=== PATIENT | female | born 1990 | race African-American/Black ===

== ENCOUNTER 2017-07-13 20:05 | Emergency (ER) | payer SELFPAY ==
[2017-07-13] MEDS ORDERED: diphenhydrAMINE 50 MG/ML VIAL ONE (21:15)
[2017-07-13] MEDS ORDERED: Metoclopramide HCl 10 MG/2 ML VIAL ONE (21:15)
[2017-07-13] MEDS ORDERED: Ketorolac Tromethamine 30 MG/ML VIAL ONE (21:15)
[2017-07-13] MEDS ORDERED: methylPREDNISolone Sod Succ/PF 125 MG/2 ML VIAL ONE (21:20)
[2017-07-13] MEDS ORDERED: Magnesium Sulfate 2 GM/100 ML BAG ONE (22:02)
[2017-07-13] MEDS ORDERED: Lorazepam 2 MG/ML VIAL ONE (22:02)
[2017-07-13 22:04] LABS: Bilirubin Negative (Negative); Blood, Urine Negative (Negative); Clarity CLEAR (Clear); Glucose, Urine (Dipstick) Negative (Negative); Leukocyte Negative (Negative); Nitrite Negative (Negative); Protein, Urine (Dipstick) Negative (Neg-Trace); Specific Gravity, Urine 1.012 (1.002-1.036); Urobilinogen 0.2 mg/dL (0.2-1.0)
[2017-07-13 22:30] LABS: #Eosinphils 0.3 thou/uL (0.0-0.7); #Lymphocytes 0.8 thou/uL (1.20-3.40); #Monocytes 0.3 thou/uL (0.11-0.59); #Neutrophils 2.6 thou/uL (1.40-6.50); %Basophils 0.6 % (0.0-1.0); %Eosinophils 7.4 % (0.0-10.0); %Lymphocytes 20.9 % (21.0-51.0); %Monocytes 6.2 % (0.0-10.0); %Neutrophils 64.9 % (42.0-75.0); Hemoglobin 13.1 g/dL (12.0-16.0); Mean Corpuscular HGB CONC 34.2 g/dL (32.0-36.0); Mean Corpuscular Hemoglobin 30.5 pg (27.0-31.0); Mean Corpuscular Volume 89.4 fl (81.0-99.0); Mean Platelet Volume 7.4 fL (7.4-10.4); Platelet Count 166 thou/uL (130-400); RBC Distribution Width 12.7 % (11.5-14.5); Red Blood Cell (RBC) Count 4.29 mill/uL (4.20-5.40)
[2017-07-13 22:45] LABS: ALT (SGPT) 41 U/L (8-55); AST (SGOT) 38 U/L (5-34); Albumin 3.3 g/dL (3.5-5.0); Alkaline Phosphatase 67 U/L (40-150); Anion Gap 8 mmol/L (10-20); BUN (Urea Nitrogen) 14 mg/dL (7.0-18.7); Bilirubin, Total 0.3 mg/dL (0.2-1.2); Calc. Creatinine Clearance 0 mL/min (70-130); Calcium 8.4 mg/dL (7.8-10.44); Carbon Dioxide 22 mmol/L (22-29); Chloride 113 mmol/L (98-107); Estimated GFR-MDRD Greater than 90; Globulin 3.1 g/dL (2.4-3.5); Glucose 107 mg/dL (70-105); Magnesium 3.7 mg/dL (1.6-2.6); Potassium 3.5 mmol/L (3.5-5.1); Protein, Total 6.4 g/dL (6.0-8.3); Sodium 139 mmol/L (136-145)
== END 2017-07-13 23:30 | disposition home or self-care (01) ==
LOC: ERS 20:05
DX: G43.909 Migraine, unspecified, not intractable, without status migrainosus (principal); K21.9 Gastro-esophageal reflux disease without esophagitis; F41.9 Anxiety disorder, unspecified; F90.9 Attention-deficit hyperactivity disorder, unspecified type; F32.9 Major depressive disorder, single episode, unspecified; F17.210 Nicotine dependence, cigarettes, uncomplicated
CPT/HCPCS: 36415; 80053; 81003; 83735; 85025; 96365; 96367; 96375; J1200; J1885; J2060; J2765; J2930; J3475

== ENCOUNTER 2017-07-16 12:02 | Emergency (ER) | payer SELFPAY ==
[2017-07-16 13:33] LABS: #Eosinphils 0.1 thou/uL (0.0-0.7); #Lymphocytes 0.8 thou/uL (1.20-3.40); #Monocytes 0.5 thou/uL (0.11-0.59); #Neutrophils 5.8 thou/uL (1.40-6.50); %Basophils 0.1 % (0.0-1.0); %Eosinophils 1.6 % (0.0-10.0); %Lymphocytes 11.6 % (21.0-51.0); %Monocytes 6.3 % (0.0-10.0); %Neutrophils 80.3 % (42.0-75.0); Mean Corpuscular HGB CONC 32.4 g/dL (32.0-36.0); Mean Corpuscular Hemoglobin 28.8 pg (27.0-31.0); Mean Corpuscular Volume 88.8 fl (81.0-99.0); Mean Platelet Volume 7.9 fL (7.4-10.4); Platelet Count 209 thou/uL (130-400); Red Blood Cell (RBC) Count 5.21 mill/uL (4.20-5.40); White Blood Cell (WBC) Count 7.3 thou/uL (4.8-10.8)
[2017-07-16 13:55] LABS: BHCG - Serum Negative (NEGATIVE); Pregs Control Background? CLEAR/WHITE (CLR/WHITE); Pregs Control Bar Appear? YES (CONTROL BAR)
[2017-07-16 14:04] LABS: ALT (SGPT) 42 U/L (8-55); AST (SGOT) 22 U/L (5-34); Albumin 4.2 g/dL (3.5-5.0); Alkaline Phosphatase 79 U/L (40-150); Anion Gap 16 mmol/L (10-20); BUN (Urea Nitrogen) 19 mg/dL (7.0-18.7); Bilirubin, Total 0.3 mg/dL (0.2-1.2); Calc. Creatinine Clearance 0 mL/min (70-130); Calcium 9.5 mg/dL (7.8-10.44); Carbon Dioxide 19 mmol/L (22-29); Chloride 110 mmol/L (98-107); Estimated GFR-MDRD Greater than 90; Globulin 3.8 g/dL (2.4-3.5); Glucose 75 mg/dL (70-105); Sodium 141 mmol/L (136-145)
--- NOTE | 2017-07-16 14:32 | CT ---
CT BRAIN WITHOUT CONTRAST: Date: 07/16/17 HISTORY: Migraines. COMPARISON: None. FINDINGS: No acute territorial infarct or hemorrhage. No midline shift or mass effect. Ventricular size and ext ra-axial CSF spaces are normal. The calvarium is intact. Mastoids are clear. IMPRESSION: No acute intracranial abnormality. POS: [facility]
[2017-07-16] MEDS ORDERED: Ketorolac Tromethamine 30 MG/ML VIAL ONE (14:36)
[2017-07-16] MEDS ORDERED: Metoclopramide HCl 10 MG/2 ML VIAL ONE (14:36)
[2017-07-16] MEDS ORDERED: diphenhydrAMINE 50 MG/ML VIAL ONE (14:36)
== END 2017-07-16 15:10 | disposition home or self-care (01) ==
LOC: ERS 12:02
DX: G43.909 Migraine, unspecified, not intractable, without status migrainosus (principal); I10 Essential (primary) hypertension; E86.0 Dehydration; F41.9 Anxiety disorder, unspecified; F32.9 Major depressive disorder, single episode, unspecified; F17.210 Nicotine dependence, cigarettes, uncomplicated
CPT/HCPCS: 70450; 80053; 84703; 85025; 96360; 96361; 99406; J1200; J1885; J2765

== ENCOUNTER 2018-02-21 10:20 | Emergency (ER) | payer SELFPAY ==
[2018-02-21] MEDS ORDERED: Acetaminophen 500 MG TAB ONE (11:27)
[2018-02-21] MEDS ORDERED: Promethazine 25 MG TAB ONE (11:27)
[2018-02-21 12:02] LABS: Bilirubin Negative (Negative); Blood, Urine Small (Negative); Clarity Clear (Clear); Glucose, Urine (Dipstick) Negative (Negative); Leukocyte Trace (Negative); Nitrite Negative (Negative); Protein, Urine (Dipstick) Negative (Neg-Trace); Urobilinogen 0.2 mg/dL (0.2-1.0)
[2018-02-21 12:04] LABS: Bacteria/HPF None Seen HPF (None Seen); Hyaline Casts/LPF NONE SEEN LPF (0-3 Hyaline); RBC/HPF 0-3 HPF (0-3); Squamous Epithelial 0-3 HPF (0-3); WBC/HPF 0-3 HPF (0-3)
== END 2018-02-21 12:25 | disposition home or self-care (01) ==
LOC: SCSER 10:20
DX: G43.909 Migraine, unspecified, not intractable, without status migrainosus (principal); R50.9 Fever, unspecified; K21.9 Gastro-esophageal reflux disease without esophagitis; F41.9 Anxiety disorder, unspecified; F32.9 Major depressive disorder, single episode, unspecified; F17.210 Nicotine dependence, cigarettes, uncomplicated; R35.0 Frequency of micturition; Z71.6 Tobacco abuse counseling
CPT/HCPCS: 81003; 81015; 87804; 99406

== ENCOUNTER 2018-03-31 18:06 | Emergency (ER) | payer SELFPAY ==
[2018-03-31] MEDS ORDERED: HYDROcodone/Acetaminophen 10/325 mg Tablet ONE (18:41)
[2018-03-31] MEDS ORDERED: Ibuprofen 800 MG TAB ONE (18:44)
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
== END 2018-03-31 18:57 | disposition home or self-care (01) ==
LOC: ERS 18:06
DX: S43.401A Unspecified sprain of right shoulder joint, initial encounter (principal); S63.501A Unspecified sprain of right wrist, initial encounter; K21.9 Gastro-esophageal reflux disease without esophagitis; F41.9 Anxiety disorder, unspecified; G43.909 Migraine, unspecified, not intractable, without status migrainosus; F17.210 Nicotine dependence, cigarettes, uncomplicated; F90.9 Attention-deficit hyperactivity disorder, unspecified type; Z71.6 Tobacco abuse counseling; X50.9XXA Other and unspecified overexertion or strenuous movements or postures, initial encounter
CPT/HCPCS: 99406

== ENCOUNTER 2018-04-06 13:18 | Emergency (ER) | payer SELFPAY ==
[2018-04-06 13:40] LABS: Bilirubin Negative (Negative); Blood, Urine Small (Negative); Clarity CLEAR (Clear); Glucose, Urine (Dipstick) Negative (Negative); Leukocyte Negative (Negative); Nitrite Negative (Negative); Protein, Urine (Dipstick) 30 mg/dL (Neg-Trace); Specific Gravity, Urine 1.023 (1.002-1.036); Urobilinogen 0.2 mg/dL (0.2-1.0); pH, Urine 5.5 (5.0-9.0)
[2018-04-06 13:42] LABS: Bacteria/HPF None Seen HPF (None Seen); Hyaline Casts/LPF 4-6 HYALINE CAST LPF (0-3 Hyaline); Pathc Cast-AUWi Flag 1.01 (0-2.49); Pregnancy Test - Urine (BHCG) Negative (Negative); Pregu Control Background? CLEAR/WHITE (CLR/WHITE); Pregu Control Bar Appear? YES (CONTROL BAR); Specific Gravity 1.023 (1.002-1.036); WBC/HPF 0-3 HPF (0-3)
[2018-04-06 13:53] LABS: Renal Epithelial 0-3 HPF (0-3)
[2018-04-06] MEDS ORDERED: Ondansetron ODT 4 MG TAB ONE (14:02)
[2018-04-06] MEDS ORDERED: cefTRIAXone\\ROCEPHIN 250 MG VIAL ONE ×2 (14:18→14:20)
[2018-04-06] MEDS ORDERED: Azithromycin 250 MG TAB ONE (14:18)
[2018-04-06] MEDS ORDERED: Lidocaine 1% (PF) 30 ML VIAL ONE (14:18)
[2018-04-07 23:02] LABS: Chlamydia by PCR Not Detected (NotDetected); GC by PCR Not Detected (NotDetected)
== END 2018-04-06 14:27 | disposition home or self-care (01) ==
LOC: ERS 13:18
DX: N72 Inflammatory disease of cervix uteri (principal); K21.9 Gastro-esophageal reflux disease without esophagitis; G43.909 Migraine, unspecified, not intractable, without status migrainosus; F41.9 Anxiety disorder, unspecified; F32.9 Major depressive disorder, single episode, unspecified; F90.9 Attention-deficit hyperactivity disorder, unspecified type; F17.210 Nicotine dependence, cigarettes, uncomplicated; Z71.6 Tobacco abuse counseling
CPT/HCPCS: 81003; 81015; 81025; 87086; 87480; 87491; 87510; 87591; 87660; 96372; 99406; J0696; J2001; Q0162

== ENCOUNTER 2019-01-30 04:49 | Emergency (ER) | payer OTHER, SELFPAY ==
[2019-01-30 05:31] LABS: #Eosinphils 0.2 thou/uL (0.0-0.7); #Monocytes 0.4 thou/uL (0.11-0.59); #Neutrophils 3.6 thou/uL (1.40-6.50); %Basophils 0.1 % (0.0-1.0); %Eosinophils 3.8 % (0.0-10.0); %Lymphocytes 31.6 % (21.0-51.0); %Monocytes 6.9 % (0.0-10.0); %Neutrophils 57.7 % (42.0-75.0); Hemoglobin 13.5 g/dL (12.0-16.0); Mean Corpuscular HGB CONC 32.2 g/dL (32.0-36.0); Mean Corpuscular Hemoglobin 27.3 pg (27.0-31.0); Mean Corpuscular Volume 84.8 fL (78.0-98.0); Mean Platelet Volume 7.4 fL (7.4-10.4); Platelet Count 254 thou/uL (130-400); RBC Distribution Width 12.4 % (11.5-14.5); Red Blood Cell (RBC) Count 4.94 mill/uL (4.20-5.40); White Blood Cell (WBC) Count 6.2 thou/uL (4.8-10.8)
[2019-01-30 05:35] LABS: BHCG - Serum Negative (NEGATIVE); Pregs Control Background? CLEAR/WHITE (CLR/WHITE); Pregs Control Bar Appear? YES (CONTROL BAR)
[2019-01-30 05:47] LABS: ALT (SGPT) 16 U/L (8-55); AST (SGOT) 11 U/L (5-34); Alkaline Phosphatase 84 U/L (40-150); Anion Gap 13 mmol/L (10-20); BUN (Urea Nitrogen) 16 mg/dL (7.0-18.7); Bilirubin, Total 0.4 mg/dL (0.2-1.2); CRP (Inflammatory) 2.06 mg/dL (= or < 0.5); Calc. Creatinine Clearance 0 mL/min (70-130); Calcium 9.5 mg/dL (7.8-10.44); Carbon Dioxide 22 mmol/L (22-29); Chloride 106 mmol/L (98-107); Estimated GFR-MDRD Greater than 90; Globulin 4.2 g/dL (2.4-3.5); Glucose 79 mg/dL (70-105); Potassium 3.6 mmol/L (3.5-5.1); Protein, Total 8.2 g/dL (6.0-8.3); Sodium 137 mmol/L (136-145)
[2019-01-30] MEDS ORDERED: Ketorolac Tromethamine 30 MG/ML VIAL ONE (06:13)
--- NOTE | 2019-01-30 07:47 | CT ---
PRELIMINARY REPORT/[facility]/EMERGENCY AFTER HOURS PROCEDURE EXAM: CT Angiography Chest With Contrast EXAM DATE/TIME: 01/30/2019 6:41 AM CLINICAL HISTORY: 28 years old, female; Angina; Prior surgery; Surgery date: 6+ months; Patient HX: No previous. Er 5. PT has elevated d-dimer. . . . 28 y/o F, with h/o lupus, presents to ED C/O diffuse pain to ble, bue , chest, throughout body; Pain of greatest severity to L foot. PT describes that she has had the adilene n intermittently for several weeks; She was prompted to come to ED tonight as her pain became so monisha re that she was unable to sleep. 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 Prior to now, she was not taking any medication for her lupus. Surgical history of cholecystectomy. TECHNIQUE: Imaging protocol: Computed tomographic angiography of the chest with intravenous contrast. 3D rendering: MIP reconstructed images were created and reviewed. Radiation optimization: All CT scans at this facility use at least one of these dose optimization edgar hniques: automated exposure control; mA and/or kV adjustment per patient size (includes targeted exam s where dose is matched to clinical indication); or iterative reconstruction. Contrast material: ISOVUE 370; Contrast volume: 100 ml; Contrast route: IV; COMPARISON: No relevant prior studies available. FINDINGS: Pulmonary arteries: No pulmonary emboli. Aorta: No aortic aneurysm. No aortic dissection. Lungs: No consolidation. No masses. Pleural space: No pneumothorax. No pleural effusion. Heart: No cardiomegaly. No signs of roight heart strain. No pericardial effusion. Lymph nodes: No enlarged lymph nodes. Bones/joints: No acute fracture. Soft tissues: Unremarkable. IMPRESSION: No acute findings. Thank you for allowing us to participate in the care of your patient. Dictated and Authenticated by: Sona Marie MD 01/30/2019 7:26 AM Central Time ([place] & [place]) FINAL REPORT CT ANGIO CHEST WITH IV CONTRAST WITH 3D RECONSTRUCTIONS: HISTORY: Patient with lupus. Chest pain. Elevated D-dimer. FINDINGS: The lungs are clear of any infiltrative process. No pulmonary nodules or pleural effusions. No significant mediastinal or hilar adenopathy. There is a normal caliber thoracic aorta. There is good pulmonary artery opacification. There is no CT evidence for pulmonary embolus. The visualized liver parenchyma shows no focal findings. The gallbladder has been removed. IMPRESSION: No CT evidence of pulmonary embolus. This report is in agreement with the temporary report issued by [facility]. CODE QA POS: [facility]
--- NOTE | 2019-01-30 07:51 | ULT ---
LEFT LOWER EXTREMITY VENOUS DUPLEX EXAM: HISTORY: Left leg pain and swelling. FINDINGS: Rela-time color Doppler evaluation of the left lower extremity was performed from groin to calf. Thi s includes evaluation of common femoral, superficial, and profunda femoral, saphenous, popliteal, and posterior tibial veins. This shows a patent deep venous system with normal compression and augmenta tion. There is no evidence of DVT. IMPRESSION: No evidence of deep vein thrombosis of the left lower extremity. POS: [facility]
--- NOTE | 2019-01-30 09:46 | RAD ---
PORTABLE CHEST: HISTORY: Chest pain. Lupus flareup. FINDINGS: Heart size and mediastinum are within normal limits. Lungs are clear of infiltrates. No significant bony findings. IMPRESSION: No active intrathoracic disease. POS: [facility]
[2019-01-30] MEDS ORDERED: ISOVUE-370 76%-LOCM 1 ML ONE (11:29)
--- NOTE | 2019-02-01 15:10 | EKG ---
Test Reason : Blood Pressure : / mmHG Vent. Rate : 090 BPM Atrial Rate : 090 BPM P-R Int : 184 ms QRS Dur : 086 ms QT Int : 358 ms P-R-T Axes : 071 003 017 degrees QTc Int : 437 ms Normal sinus rhythm Confirmed by ROBERT ELLIOTT DO ([id number]), editor managing director LISETTE FLOREZ ([id number]) on 02/01/2019 3:10:27 PM Referred By: Confirmed By:ROBERT ELLIOTT DO
== END 2019-01-30 08:02 | disposition home or self-care (01) ==
LOC: ERS 04:49
DX: O99.89 Other specified diseases and conditions complicating pregnancy, childbirth and the puerperium (principal); M32.9 Systemic lupus erythematosus, unspecified; O99.351 Diseases of the nervous system complicating pregnancy, first trimester; G43.909 Migraine, unspecified, not intractable, without status migrainosus; O99.611 Diseases of the digestive system complicating pregnancy, first trimester; K21.9 Gastro-esophageal reflux disease without esophagitis; O99.341 Other mental disorders complicating pregnancy, first trimester; F41.9 Anxiety disorder, unspecified; F32.9 Major depressive disorder, single episode, unspecified; O99.331 Smoking (tobacco) complicating pregnancy, first trimester; F17.210 Nicotine dependence, cigarettes, uncomplicated; Z79.899 Other long term (current) drug therapy; Z3A.01 Less than 8 weeks gestation of pregnancy
CPT/HCPCS: 36415; 71045; 71275; 80053; 84484; 84703; 85025; 85379; 85652; 86140; 93005; 96361; 96374; J1885

== ENCOUNTER 2019-05-03 07:50 | Emergency (ER) | payer OTHER, SELFPAY ==
[2019-05-03] MEDS ORDERED: diphenhydrAMINE 50 MG/ML VIAL ONE (08:05)
[2019-05-03] MEDS ORDERED: Metoclopramide HCl 10 MG/2 ML VIAL ONE (08:05)
[2019-05-03] MEDS ORDERED: Dexamethasone 10 MG/ML VIAL ONE (08:05)
[2019-05-03] MEDS ORDERED: Magnesium 2 GM/50 ML BAG (IN WATER) ONE (09:27)
[2019-05-03] MEDS ORDERED: Ketorolac Tromethamine 30 MG/ML VIAL ONE (09:27)
== END 2019-05-03 10:54 | disposition home or self-care (01) ==
LOC: ERS 07:50
DX: G43.909 Migraine, unspecified, not intractable, without status migrainosus (principal); K21.9 Gastro-esophageal reflux disease without esophagitis; F41.9 Anxiety disorder, unspecified; F32.9 Major depressive disorder, single episode, unspecified; F90.9 Attention-deficit hyperactivity disorder, unspecified type; F17.210 Nicotine dependence, cigarettes, uncomplicated
CPT/HCPCS: 96365; 96367; 96375; J1100; J1200; J1885; J2765; J3475

== ENCOUNTER 2021-02-07 00:28 | Emergency (ER) | payer OTHER ==
[2021-02-07 02:23] LABS: Pregnancy Test - Urine (BHCG) Negative (Negative); Pregu Control Background? CLEAR/WHITE (CLR/WHITE); Pregu Control Bar Appear? YES (CONTROL BAR); Specific Gravity 1.018 (1.002-1.036)
[2021-02-07] MEDS ORDERED: Ketorolac Tromethamine 30 MG/ML VIAL ONE (02:57)
[2021-02-07] MEDS ORDERED: Dexamethasone 10 MG/ML VIAL ONE (02:57)
[2021-02-07] MEDS ORDERED: hydrOXYzine 25 MG TAB ONE (02:57)
== END 2021-02-07 03:12 | disposition left against medical advice (07) ==
LOC: ERS 00:28
DX: D89.9 Disorder involving the immune mechanism, unspecified (principal); G43.909 Migraine, unspecified, not intractable, without status migrainosus; K21.9 Gastro-esophageal reflux disease without esophagitis; F17.210 Nicotine dependence, cigarettes, uncomplicated
CPT/HCPCS: 81025; 99283; J1100; J1885

== ENCOUNTER 2021-12-19 16:12 | Outpatient (CLI) | payer BC | END 2021-12-19 16:13 | disposition home or self-care (01) | LOC: RAD-FRANK 16:12 | PROVIDERS: ATTEND Nurse Practitioner Family | DX: L93.0 Discoid lupus erythematosus (principal) ==

== ENCOUNTER 2022-03-10 22:27 | Emergency (ER) | payer BC ==
[2022-03-10] MEDS ORDERED: Morphine 4 MG/ML VIAL ONE (23:17)
[2022-03-10] MEDS ORDERED: diphenhydrAMINE 50 MG/ML VIAL ONE (23:17)
[2022-03-10] MEDS ORDERED: Ketorolac Tromethamine 30 MG/ML VIAL ONE (23:34)
[2022-03-11 00:15] LABS: #Eosinphils 0.3 thou/uL (0.0-0.7); #Monocytes 0.4 thou/uL (0.11-0.59); #Neutrophils 4.8 thou/uL (1.40-6.50); %Basophils 0.3 % (0.0-1.0); %Eosinophils 4.4 % (0.0-10.0); %Monocytes 5.5 % (0.0-10.0); %Neutrophils 74.8 % (42.0-75.0); Mean Corpuscular Hemoglobin 28.9 pg (27.0-31.0); Mean Corpuscular Volume 87.6 fL (78.0-98.0); Mean Platelet Volume 7.5 fL (7.4-10.4); Platelet Count 208 thou/uL (130-400); RBC Distribution Width 13.4 % (11.5-14.5); Red Blood Cell (RBC) Count 3.81 mill/uL (4.20-5.40); White Blood Cell (WBC) Count 6.4 thou/uL (4.8-10.8)
[2022-03-11 00:40] LABS: ALT (SGPT) 13 U/L (8-55); AST (SGOT) 12 U/L (5-34); Albumin 3.3 g/dL (3.5-5.0); Alkaline Phosphatase 69 U/L (40-110); Anion Gap 12 mmol/L (10-20); BUN (Urea Nitrogen) 17 mg/dL (7.0-18.7); Bilirubin, Total 0.3 mg/dL (0.2-1.2); Calc. Creatinine Clearance 0 mL/min (70-130); Calcium 8.4 mg/dL (7.8-10.44); Carbon Dioxide 21 mmol/L (22-29); Chloride 110 mmol/L (98-107); Estimated GFR 73; Globulin 3.6 g/dL (2.4-3.5); Glucose 94 mg/dL (70-105); Potassium 3.6 mmol/L (3.5-5.1); Protein, Total 6.9 g/dL (6.0-8.3); Sodium 139 mmol/L (136-145)
== END 2022-03-11 01:56 | disposition home or self-care (01) ==
LOC: ERS 22:27
DX: M32.9 Systemic lupus erythematosus, unspecified (principal); K21.9 Gastro-esophageal reflux disease without esophagitis; G43.909 Migraine, unspecified, not intractable, without status migrainosus; F17.210 Nicotine dependence, cigarettes, uncomplicated
CPT/HCPCS: 36415; 80053; 85025; 96374; 96375; J1200; J1885; J2270

== ENCOUNTER 2022-09-24 08:50 | Observation (INO) | payer BC ==
[2022-09-24 10:04] LABS: #Basophils 0.1 thou/uL (0.0-0.2); #Lymphocytes 0.7 thou/uL (1.20-3.40); #Monocytes 0.2 thou/uL (0.11-0.59); #Neutrophils 2.5 thou/uL (1.40-6.50); %Basophils 1.9 % (0.0-1.0); %Eosinophils 1.2 % (0.0-10.0); %Lymphocytes 20.1 % (21.0-51.0); %Monocytes 6.3 % (0.0-10.0); %Neutrophils 70.5 % (42.0-75.0); Hemoglobin 13.4 g/dL (12.0-16.0); Mean Corpuscular HGB CONC 33.4 g/dL (32.0-36.0); Mean Corpuscular Hemoglobin 29.4 pg (27.0-31.0); Mean Platelet Volume 7.1 fL (7.4-10.4); Platelet Count 219 10x3/uL (130-400); RBC Distribution Width 11.7 % (11.5-14.5); Red Blood Cell (RBC) Count 4.54 mill/uL (4.20-5.40); White Blood Cell (WBC) Count 3.5 10x3/uL (4.8-10.8)
[2022-09-24 10:09] LABS: BHCG - Serum Negative (NEGATIVE); Pregs Control Background? CLEAR/WHITE (CLR/WHITE); Pregs Control Bar Appear? YES (CONTROL BAR)
[2022-09-24 10:26] LABS: ALT (SGPT) 15 U/L (8-55); AST (SGOT) 15 U/L (5-34); Albumin 3.5 g/dL (3.5-5.0); Alkaline Phosphatase 56 U/L (40-110); Anion Gap 13 mmol/L (10-20); BUN (Urea Nitrogen) 13 mg/dL (7.0-18.7); Bilirubin, Total 0.2 mg/dL (0.2-1.2); Calc. Creatinine Clearance 0 mL/min (70-130); Calcium 8.8 mg/dL (7.8-10.44); Carbon Dioxide 18 mmol/L (22-29); Chloride 109 mmol/L (98-107); Estimated GFR 64; Globulin 3.8 g/dL (2.4-3.5); Glucose 79 mg/dL (70-105); Potassium 4.1 mmol/L (3.5-5.1); Protein, Total 7.3 g/dL (6.0-8.3); Sodium 136 mmol/L (136-145)
[2022-09-24] MEDS ORDERED: Acetaminophen 500 MG TAB ONE (12:08)
[2022-09-24] MEDS ORDERED: Acetaminophen 325 MG TAB PO PRN (14:55)
[2022-09-24] MEDS ORDERED: HYDROcodone/Acetaminophen 5/325 mg Tablet PO PRN (14:55)
[2022-09-24] MEDS ORDERED: Ondansetron PF 4 MG/2 ML Vial IVP PRN (14:55)
[2022-09-24] MEDS ORDERED: Lorazepam 2 MG/ML VIAL SLOW IVP PRN (15:08)
[2022-09-24 16:08] LABS: INR-International Normal Ratio 0.9; PTT 25.9 sec (22.9-36.1); Prothrombin Time 12.9 sec (12.0-14.7)
[2022-09-24 17:59] VITALS: BMI 35.6
[2022-09-24] MEDS: Morphine 4 MG/ML VIAL SLOW IVP PRN (18:46)
[2022-09-24] MEDS: Sodium Chloride 0.9% 1,000 ML IV SCH (18:47)
[2022-09-24] MEDS: HYDROcodone/Acetaminophen 10/325 mg Tablet PO PRN (19:58)
[2022-09-25] MEDS: HYDROcodone/Acetaminophen 10/325 mg Tablet PO PRN ×3 (00:53→16:41)
[2022-09-25] MEDS: Sodium Chloride 0.9% 1,000 ML IV SCH (01:01)
[2022-09-25] MEDS: Morphine 4 MG/ML VIAL SLOW IVP PRN (05:27)
[2022-09-25] MEDS ORDERED: Dexmedetomidine 200 MCG/2 ML VIAL ONE (06:02)
[2022-09-25] MEDS ORDERED: fentaNYL PF 100 MCG/2 ML SYRINGE ONE (06:02)
[2022-09-25 06:39] LABS: Hemoglobin 12.8 g/dL (12.0-16.0); Mean Corpuscular HGB CONC 33.1 g/dL (32.0-36.0); Mean Corpuscular Hemoglobin 29.3 pg (27.0-31.0); Mean Corpuscular Volume 88.5 fl (78.0-98.0); Mean Platelet Volume 7.3 fL (7.4-10.4); Platelet Count 229 10x3/uL (130-400); RBC Distribution Width 11.8 % (11.5-14.5); Red Blood Cell (RBC) Count 4.38 mill/uL (4.20-5.40); White Blood Cell (WBC) Count 3.6 10x3/uL (4.8-10.8)
[2022-09-25 06:43] LABS: Anion Gap 11 mmol/L (10-20); BUN (Urea Nitrogen) 15 mg/dL (7.0-18.7); Calc. Creatinine Clearance 119 mL/min (70-130); Calcium 8.4 mg/dL (7.8-10.44); Carbon Dioxide 19 mmol/L (22-29); Chloride 111 mmol/L (98-107); Estimated GFR 68; Glucose 65 mg/dL (70-105); Potassium 3.8 mmol/L (3.5-5.1); Sodium 137 mmol/L (136-145)
[2022-09-25] MEDS ORDERED: Bupivacaine/Epinephrine 0.25% 30 ML VIAL ONE (06:46)
[2022-09-25] MEDS ORDERED: Lidocaine 1% (PF) 30 ML VIAL ONE (06:46)
[2022-09-25] MEDS ORDERED: CEFAZOLIN 2 GM VIAL ONE (07:14)
[2022-09-25] MEDS ORDERED: Sodium Chloride 0.9% 100 ML ONE (07:14)
[2022-09-25] MEDS ORDERED: Midazolam HCl 2 mg/2 ml Vial ONE (07:15)
[2022-09-25] MEDS ORDERED: Ketorolac Tromethamine 30 MG/ML VIAL ONE (07:36)
[2022-09-25] MEDS ORDERED: Metoclopramide HCl 10 MG/2 ML VIAL ONE (07:36)
[2022-09-25] MEDS ORDERED: Ondansetron PF 4 MG/2 ML Vial ONE (07:36)
[2022-09-25] MEDS ORDERED: Dexamethasone 20 MG/5 ML VIAL ONE (07:36)
[2022-09-25] MEDS ORDERED: PROPOFOL 200 MG/20 ML VIAL ONE (07:36)
[2022-09-25] MEDS ORDERED: Lidocaine 1% PF 5 ML VIAL ONE (07:36)
[2022-09-25] MEDS ORDERED: HYDROmorphone 0.5 MG/0.5 ML SYRINGE ONE (08:08)
[2022-09-25] MEDS ORDERED: Gabapentin 100 MG CAP PO PRN (08:19)
[2022-09-25] MEDS ORDERED: Meperidine HCl/PF 25 MG/ML VIAL SLOW IVP PRN (08:27)
[2022-09-25] MEDS ORDERED: Morphine Sulfate 2 MG/ML SYRINGE SLOW IVP PRN (08:27)
[2022-09-25] MEDS ORDERED: Ondansetron HCl/PF 4 MG/2 ML Vial IVP PRN (08:27)
[2022-09-25] MEDS ORDERED: Promethazine HCl 25 MG/ML VIAL IM PRN (08:27)
[2022-09-25] MEDS ORDERED: Fentanyl 250 MCG/5 ML VIAL ONE (08:27)
[2022-09-25] MEDS ORDERED: PACU-Morphine 4MG/ML VIAL SLOW IVP PRN (08:27)
[2022-09-25] MEDS ORDERED: HYDROmorphone 2 MG/ML VIAL SLOW IVP PRN (08:27)
[2022-09-25] MEDS ORDERED: diphenhydrAMINE 50 MG/ML VIAL ONE (08:47)
[2022-09-25] MEDS ORDERED: Morphine 4 MG/ML VIAL ONE (08:53)
[2022-09-25] MEDS ORDERED: NORETHINDRONE AC ETH ESTRADIOL PO SCH (09:00)
[2022-09-25] MEDS ORDERED: diphenhydrAMINE 50 MG/ML VIAL IVP SCH (09:00)
[2022-09-25] MEDS ORDERED: Losartan 25 MG TAB PO SCH (09:00)
[2022-09-25] MEDS ORDERED: Amlodipine 5 MG TAB PO SCH (09:00)
[2022-09-25 09:02] LABS: Eosinophils 4 % (0-10); Lymphocytes 42 % (21-51); MDiff Complete? YES; Monocytes 8 % (0-10); Neutrophil 46 % (42-75); Platelet Morphology Comment Appears Adequate; Vacuoles SLIGHT
[2022-09-25 15:47] VITALS: BP 112/74; TEMP 97.8
== END 2022-09-25 17:00 | disposition home or self-care (01) ==
LOC: ERS 08:50 → SURG A 14:55 → INTOOBSV 14:55
PROVIDERS: ADMIT Hospitalist; ATTEND Hospitalist
PROC: 0Y6T0Z0 Detachment at Right 3rd Toe, Complete, Open Approach (ICD-10-PCS; principal; 2022-09-25)
DX: I73.01 Raynaud's syndrome with gangrene (principal); M32.9 Systemic lupus erythematosus, unspecified; I10 Essential (primary) hypertension; Z79.02 Long term (current) use of antithrombotics/antiplatelets; Z79.899 Other long term (current) drug therapy; Z88.8 Allergy status to other drugs, medicaments and biological substances
CPT/HCPCS: 36415; 80048; 80053; 84703; 85025; 85610; 85730; 88305; 88311; 93926; 96374; 96376; G0378; J1100; J1170; J1200; J1885; J2001; J2250; J2270; J2405; J2704; J2765; J3010; J3490; J7050

== ENCOUNTER 2022-10-02 09:42 | Emergency (ER) | payer BC ==
[2022-10-02] MEDS ORDERED: Ketorolac Tromethamine 30 MG/ML VIAL ONE (10:35)
[2022-10-02 10:52] LABS: #Eosinphils 0.1 thou/uL (0.0-0.7); #Monocytes 0.4 thou/uL (0.11-0.59); #Neutrophils 4.7 thou/uL (1.40-6.50); %Basophils 0.5 % (0.0-1.0); %Eosinophils 1.2 % (0.0-10.0); %Lymphocytes 14.1 % (21.0-51.0); %Monocytes 6.3 % (0.0-10.0); %Neutrophils 77.6 % (42.0-75.0); Hemoglobin 12.6 g/dL (12.0-16.0); Mean Corpuscular HGB CONC 33.8 g/dL (32.0-36.0); Mean Corpuscular Hemoglobin 28.5 pg (27.0-31.0); Mean Corpuscular Volume 84.4 fl (78.0-98.0); Mean Platelet Volume 8.7 fL (7.4-10.4); Platelet Count 268 10x3/uL (130-400); RBC Distribution Width 12.6 % (11.5-14.5); Red Blood Cell (RBC) Count 4.42 mill/uL (4.20-5.40)
[2022-10-02 11:13] LABS: ALT (SGPT) 11 U/L (8-55); AST (SGOT) 13 U/L (5-34); Albumin 3.6 g/dL (3.5-5.0); Alkaline Phosphatase 66 U/L (40-110); Anion Gap 13 mmol/L (10-20); BUN (Urea Nitrogen) 17 mg/dL (7.0-18.7); Bilirubin, Total 0.2 mg/dL (0.2-1.2); Calc. Creatinine Clearance 0 mL/min (70-130); Calcium 9.2 mg/dL (7.8-10.44); Carbon Dioxide 22 mmol/L (22-29); Chloride 106 mmol/L (98-107); Estimated GFR 64; Glucose 97 mg/dL (70-105); Potassium 3.9 mmol/L (3.5-5.1); Protein, Total 7.6 g/dL (6.0-8.3); Sodium 137 mmol/L (136-145)
== END 2022-10-02 12:53 | disposition home or self-care (01) ==
LOC: ERS 09:42
DX: G89.18 Other acute postprocedural pain (principal); K21.9 Gastro-esophageal reflux disease without esophagitis; F17.290 Nicotine dependence, other tobacco product, uncomplicated; Z79.899 Other long term (current) drug therapy
CPT/HCPCS: 80053; 83605; 85025; 96374; J1885

== ENCOUNTER 2023-09-24 16:58 | Emergency (ER) | payer BC | END 2023-09-24 19:46 | disposition home or self-care (01) | LOC: ERS 16:58 | DX: S63.601A Unspecified sprain of right thumb, initial encounter (principal); S80.12XA Contusion of left lower leg, initial encounter; S09.90XA Unspecified injury of head, initial encounter; M62.838 Other muscle spasm; X58.XXXA Exposure to other specified factors, initial encounter | CPT/HCPCS: 70450; 71045; 71260; 72125; 72170; 74177; 80053; 83880; 84703; 85025; 93005; 96374; G0390; J1885; Q9967 ==